=== PATIENT | male | born 1995 ===

== ENCOUNTER 2017-04-09 17:45 | Emergency (ER) | payer OTHER ==
[2017-04-09 17:52] VITALS: BP 134/77; PULSE 103; RESP 20; TEMP 100.1; O2SAT 100
--- NOTE | 2017-04-09 18:35 | ED PDOC ---
HPI: General Adult Time Seen by Provider: 04/09/17 17:54 Chief Complaint (Nursing): Flu-like Symptoms Chief Complaint (Provider): Cough History Per: Patient Additional Complaint(s): Pt is a 22 yo male, no PMH, presents to ED for evaluation of sore throat pain, nasal congestion, cough and headache with post-vomiting x5 days. Pt seen and evaluated by his PMD on Wed at the start of the symptoms and was placed on an antibitoic, name unknown, which he is taking without relief. Past Medical History Reviewed: Nursing Documentation, Vital Signs Vital Signs: Last Vital Signs Temp 100.1 F H 04/09/17 17:49 Pulse 103 H 04/09/17 17:49 Resp 20 04/09/17 17:49 BP 134/77 04/09/17 17:49 Pulse Ox 100 04/09/17 17:49 - Medical History PMH: No Chronic Diseases - Surgical History Surgical History: No Surg Hx - Family History Family History: States: No Known Family Hx - Living Arrangements Living Arrangements: With Family - Social History Current smoker - smoking cessation education provided: No Alcohol: Social Drugs: Denies - Home Medications Home Medications: Ambulatory Orders Medication Instructions Recorded Guaifenesin/Pseudoephedrne HCl 1 tab PO DAILY PRN #30 ter 04/09/17 [Mucinex D 600 mg-60 mg] Promethazine HCl/Codeine 5 ml PO HS #80 ml 04/09/17 [Prometh-Codein 6.25-10 mg/5 ml] - Allergies Allergies/Adverse Reactions: Allergies Allergy/AdvReac Type Severity Reaction Status Date / Time No Known Allergies Allergy Verified 04/09/17 17:49 Review of Systems ROS Statement: Except As Marked, All Systems Reviewed And Found Negative Constitutional: Positive for: Fever ENT: Positive for: Nose Congestion Respiratory: Positive for: Cough Physical Exam - Reviewed Nursing Documentation Reviewed: Yes Vital Signs Reviewed: Yes - Physical Exam Appears: Positive for: Well, Non-toxic, No Acute Distress Head Exam: Positive for: ATRAUMATIC, NORMAL INSPECTION, NORMOCEPHALIC Skin: Positive for: Normal Color, Warm, DRY Eye Exam: Positive for: EOMI, Normal appearance, PERRL ENT: Positive for: Normal ENT Inspection Neck: Positive for: Normal, Painless ROM Cardiovascular/Chest: Positive for: Regular Rate, Rhythm Respiratory: Positive for: CNT, Normal Breath Sounds Gastrointestinal/Abdominal: Positive for: Normal Exam, Bowel Sounds, Soft Back: Positive for: Normal Inspection Extremity: Positive for: Normal ROM Neurologic/Psych: Positive for: Alert, Oriented - ECG O2 Sat by Pulse Oximetry: 100 Medical Decision Making Medical Decision Making: CXR: NAd, as read by LUCIO Motrin Po administered for low grade temp 100.1F Pt and his mom educated on URI like symptoms, as well as common duration. Advised to continue with supportive care Disposition - Clinical Impression Clinical Impression: Upper respiratory infection - Patient ED Disposition Is Patient to be Admitted: No - Disposition Disposition: Routine/Home Disposition Time: 18:36 Condition: STABLE Prescriptions: Guaifenesin/Pseudoephedrne HCl [Mucinex D 600 mg-60 mg] 1 tab PO DAILY PRN #30 ter PRN Reason: congestion Promethazine HCl/Codeine [Prometh-Codein 6.25-10 mg/5 ml] 5 ml PO HS #80 ml Instructions: Upper Respiratory Infection (ED) Print Language: PERSIAN
--- NOTE | 2017-04-10 09:51 | RAD ---
HISTORY: fever and cough COMPARISON: No prior. TECHNIQUE: Chest PA and lateral FINDINGS: LUNGS: There are a few vague opacities seen in the right upper lobe which are nonspecific however could represent developing pneumonia. Clinical correlation recommended. . PLEURA: No significant pleural effusion identified. No pneumothorax apparent. CARDIOVASCULAR: Normal. OSSEOUS STRUCTURES: Minor side bending to the left versus possible on mild levoscoliosis centered in the upper thoracic region. VISUALIZED UPPER ABDOMEN: Normal. OTHER FINDINGS: None. IMPRESSION: There are a few vague opacities seen in the right upper lobe which are nonspecific however could represent developing pneumonia. Clinical correlation recommended. . . Note this report was placed in PA review folder for followup
== END 2017-04-09 18:48 | disposition home or self-care (01) ==
LOC: H.ER 17:45
DX: J06.9 Acute upper respiratory infection, unspecified (principal)

== ENCOUNTER 2018-09-28 09:40 | Emergency (ER) | payer OTHER ==
[2018-09-28 09:50] VITALS: BMI 22.4
[2018-09-28 09:52] VITALS: RESP 20; O2SAT 98
--- NOTE | 2018-09-28 11:17 | ED PDOC ---
HPI: Influenza Time Seen by Provider: 09/28/18 09:44 Chief Complaint: Cough, Cold, Congestion History Per: Patient Additional complaint(s):: Pt. states for the past month he's had a cough productive of yellow sputum. Reports now his parents both have the same symptoms. Denies chest pain, SOB, hemoptysis, fever, recent travel. Past Medical History Reviewed: Historical Data, Nursing Documentation, Vital Signs Vital Signs: Last Vital Signs Temp 98.9 F 09/28/18 09:51 Pulse 85 09/28/18 09:51 Resp 20 09/28/18 09:51 BP 114/56 L 09/28/18 09:51 Pulse Ox 98 09/28/18 10:01 - Medical History PMH: Asthma - Surgical History Surgical History: No Surg Hx - Family History Family History: States: No Known Family Hx - Social History Current smoker - smoking cessation education provided: No Ex-Smoker (has not smoked in the last 12 months): No - Immunization History Hx Tetanus Toxoid Vaccination: Yes - Home Medications Home Medications: Ambulatory Orders Medication Instructions Recorded Guaifenesin/Pseudoephedrne HCl 1 tab PO DAILY PRN #30 ter 04/09/17 [Mucinex D 600 mg-60 mg] Promethazine HCl/Codeine 5 ml PO HS #80 ml 04/09/17 [Prometh-Codein 6.25-10 mg/5 ml] Albuterol HFA [Ventolin HFA 90 2 puff IH [id number] PRN #120 puff 09/28/18 mcg/actuation (8 g)] Azithromycin [Zithromax] 250 mg PO DAILY #6 tab 09/28/18 RX: Promethazine DM [Phenergan DM 5 - 10 ml PO Q8 PRN #120 ml 09/28/18 Syrup] - Allergies Allergies/Adverse Reactions: Allergies Allergy/AdvReac Type Severity Reaction Status Date / Time No Known Allergies Allergy Verified 09/28/18 10:00 Review of Systems ROS Statement: Except As Marked, All Systems Reviewed And Found Negative Respiratory: Positive for: Cough Physical Exam - Physical Exam Appears: Positive for: Well, Non-toxic, No Acute Distress Skin: Positive for: Normal Color, Warm. Negative for: Rash Eye Exam: Positive for: Normal appearance Cardiovascular/Chest: Positive for: Regular Rate, Rhythm Respiratory: Positive for: Normal Breath Sounds. Negative for: Respiratory Distress Neurologic/Psych: Positive for: Alert, Oriented (x3) - ECG O2 Sat by Pulse Oximetry: 98 - Radiology X-Ray: Interpreted by Me (CXR) X-Ray Interpretation: No Acute Disease Disposition - Clinical Impression Clinical Impression: Acute bronchitis - Patient ED Disposition Is Patient to be Admitted: No - Disposition Referrals: [facility] [Outside] Disposition: Routine/Home Disposition Time: 11:15 Condition: STABLE Additional Instructions: FOLLOW UP WITH PMD FOR FURTHER EVALUATION RETURN TO ED IMMEDIATELY IF SYMPTOMS WORSEN [place] COULTER, thank you for letting us take care of you today. Your provi kodak was Jeaneth Lott MD and you were treated for COUGH,HEADACHE. The emergency medical care you received today was directed at your acute symptoms. If you were prescribed any medication, please fill it and take as directed. It may take several days for your symptoms to resolve. Return to the Emergency Department if your symptoms worsen, do not improve, or if you have any other problems. Please contact your doctor or call one of the physicians/clinics you have been referred to that are listed on the Patient Visit Information form that is included in your discharge packet. Bring any paperwork you were given at discharge with you along with any medications you are taking to your follow up visit. Our treatment cannot replace ongoing medical care by a primary care provider outside of the emergency department. Thank you for allowing the [facility] team to be part of your care today. If you had an X-Ray or CT scan: A Radiologist will review the ED reading if any change in treatment is needed we will contact you. If you had a blood, urine, or wound culture: It will take several days for the results, if any change in treatment is needed we will contact you. If you had an STI test: It will take 48 hours for the results. Please call after 1 week if you have not heard back. Prescriptions: Albuterol HFA [Ventolin HFA 90 mcg/actuation (8 g)] 2 puff IH [id number] PRN #120 puff PRN Reason: Cough Azithromycin [Zithromax] 250 mg PO DAILY #6 tab RX: Promethazine DM [Phenergan DM Syrup] 5 - 10 ml PO Q8 PRN #120 ml PRN Reason: Cough Instructions: Acute Bronchitis, Adult (DC) Forms: [employer] [facility] ([place]), [facility] ED School/Work Excuse Print Language: INDIAN
[2018-09-28 11:29] VITALS: BP 120/70; PULSE 84; TEMP 98
--- NOTE | 2018-09-28 12:45 | RAD ---
Date of service: 09/28/2018 HISTORY: Cough COMPARISON: Comparison chest 04/09/2017 TECHNIQUE: Chest PA and lateral FINDINGS: LUNGS: No active pulmonary disease. Questionable minimal scarring right upper lobe PLEURA: No significant pleural effusion identified. No pneumothorax apparent. CARDIOVASCULAR: No aortic atherosclerotic calcification present. Normal cardiac size. No pulmonary vascular congestion. OSSEOUS STRUCTURES: No significant abnormalities. VISUALIZED UPPER ABDOMEN: Normal. OTHER FINDINGS: None. IMPRESSION: No acute consolidation. Questionable minimal scarring right upper lobe
== END 2018-09-28 11:28 | disposition home or self-care (01) ==
LOC: H.ER 09:40
DX: J20.9 Acute bronchitis, unspecified (principal); J45.909 Unspecified asthma, uncomplicated; Z87.891 Personal history of nicotine dependence